=== PATIENT | female | born 1935 | race Hispanic/Latino ===

== ENCOUNTER 2017-04-06 09:03 | Inpatient (IN) | payer MEDICARE, OTHER ==
--- NOTE | 2017-04-06 10:54 | XRay Report ---
Right hand 3 views: History: Pain and swelling. Findings: Arthritic changes are noted at the interphalangeal joints of second, third, fourth and fifth fingers. Mild arthritic changes of the noted intercarpal joints. No periosteal reaction or lytic lesion or soft tissue calcification. Impression: Findings as detailed above. No acute changes.
--- NOTE | 2017-04-06 10:54 | XRay Report ---
Right wrist 3 views: History: Pain and swelling. Findings: Mild arthritic changes are noted the radiocarpal and intercarpal joints. No periosteal reaction, fracture or soft tissue calcification. Impression: Mild arthritic changes wrist.
[2017-04-06] MEDS ORDERED: NORCO 5/325 PO ONE (11:57)
--- NOTE | 2017-04-06 12:01 | Emergency Department Report ---
Upper Extremity - HPI Chief Complaint: Extremity Injury, Upper Stated Complaint: RT HAND UNABLE TO MOVE Time Seen by Provider: 04/06/17 11:25 Upper Extremity: Right Wrist Symptoms: Yes Pain with Movement, No Deformity, No Limited Range of Movement, No Numbness, No Weakness, No Swelling, No Bruising/Ecchymosis Other History: 81-year-old female past medical history CHF atrial fibrillation on a liquid as history of gout congenitally deaf hypercholesteremia and hypertension GERD left hip replacement presents with complaint of 2-3 days of right sided wrist redness on skin pain and swelling. Patient is deaf she is able to read my lips and I am communicating with her by writing down questions and answers on paper. Patient understands my questions and answers clearly and expresses understanding of them. The sign language translation service is currently not available as per charge nurse Jake as the machine is broken. However I am able to communicate effectively with the patient. Patient denies any fevers or chills denies any direct trauma states that she is having pain on the dorsal aspect of her right wrist. Denies any chest pain shortness of breath nausea or vomiting denies fevers or chills. States she lives alone. ED Review of Systems ROS: Stated complaint: RT HAND UNABLE TO MOVE Other details as noted in HPI Constitutional: denies: chills, fever Eyes: denies: eye pain, eye discharge, vision change ENT: denies: ear pain, throat pain Respiratory: denies: cough, shortness of breath, wheezing Cardiovascular: denies: chest pain, palpitations Endocrine: no symptoms reported Gastrointestinal: denies: abdominal pain, nausea, diarrhea Genitourinary: denies: urgency, dysuria, discharge Musculoskeletal: denies: back pain, joint swelling, arthralgia Skin: change in color (redness overlying the right dorsal wrist). denies: rash , lesions Neurological: denies: headache, weakness, paresthesias Psychiatric: denies: anxiety, depression Hematological/Lymphatic: denies: easy bleeding, easy bruising ED Past Medical Hx - Past Medical History Hx Hypertension: Yes Hx Congestive Heart Failure: Yes Hx Diabetes: No Hx GERD: Yes Hx Arthritis: Yes Additional medical history: Gout. HIGH CHOLESTEROL - Surgical History Additional Surgical History: Left Hip replacement 2008. HYSTERECTOMY 1974. BACK SURGERY X 2 - Social History Smoking Status: Never Smoker Substance Use Type: None - Medications Home Medications: Home Medications Medication Instructions Recorded Confirmed Last Taken Type Allopurinol [Zyloprim] 300 mg PO QDAY 07/02/16 04/06/17 04/06/17 07:00 History Apixaban [Eliquis] 5 mg PO BID 07/02/16 04/06/17 04/06/17 07:00 History Atenolol [Tenormin] 50 mg PO DAILY 07/02/16 04/06/17 04/06/17 07:00 History Esomeprazole Magnesium [NexIUM] 40 mg PO QDAY 07/02/16 04/06/17 04/06/17 07:00 History Furosemide [Lasix TAB] 20 mg PO QDAY 07/02/16 04/06/17 04/06/17 07:00 History Losartan [Cozaar] 100 mg PO QDAY 07/02/16 04/06/17 04/06/17 07:00 History 100 MG cycloSPORINE [Restasis 0.05%] 1 drop OP BID 07/02/16 04/06/17 04/06/17 07:00 History 0.05MG AtorvaSTATin 10 mg PO DAILY 04/06/17 04/06/17 04/06/17 07:00 History 10 MG HYDROcodone/APAP 5-325 [[place] 1 each PO Q6HR PRN 04/06/17 04/06/17 Unknown History 5/325] [place]-3 Fatty Acids/Fish Oil [Fish 1 tab PO DAILY 04/06/17 04/06/17 04/06/17 07: 00 History Oil] 1 TAB Solifenacin Succinate [Vesicare] 5 mg PO QDAY 04/06/17 04/06/17 04/06/17 07:00 History 1 TABLET Ubidecarenone [Coq-10] 100 mg PO DAILY 04/06/17 04/06/17 04/06/17 13:55 History 1 TABLET Zolpidem [Ambien] 5 mg PO QHS 04/06/17 04/06/17 Unknown History traMADol [Ultram] 50 mg PO Q4HR PRN 04/06/17 04/06/17 Unknown History Upper Extremity Exam - Exam General: Vital signs noted. No distress. Alert and acting appropriately. Head and Torso: No HEENT Abnormality, No Neck Tenderness, No Chest/Lungs Abnormality, No Abdominal Tenderness, No Back Tenderness Shoulder Exam: Yes Normal Range of Motion in Shoulder, No Shoulder Tenderness, No Clavicle Tenderness, No Shoulder Deformity, No AC Joint Tenderness Arm Exam: No Arm/Humerus Tenderness, No Arm Deformity Elbow: No Elbow Tenderness, No Normal Range of Motion in Elbow, No Elbow Deformity Forearm: No Forearm Tenderness, No Forearm Deformity, No Pain with Pronation, No Pain with Supination Wrist: Yes Wrist Tenderness (hyperesthesia and visible erythema right dorsal hand and wrist), Yes Normal ROM in Wrist (wrist flexion and extension intact), No Wrist Deformity, No Snuffbox Tenderness, No Pain with Axial Thumb Compression Hand: Yes Normal ROM in Digit(s), No Hand Tenderness, No Hand Deformity, No Digit Tenderness, No Digit(s) Deformity, No Tendon Dysfunction CMS Exam: Yes Normal Distal Pulses (distal radial and brachial pulses intact distal ulnar pulse intact), Yes Normal Capillary Refill (capillary refill intact ), No Broken Skin, No Normal Distal Sensation Hand L/R Back: 1 - Erythematous region here ED Course Vital Signs 04/06/17 10:07 Temperature 98.5 F Pulse Rate 86 Respiratory 17 Rate Blood Pressure 128/85 O2 Sat by Pulse 100 Oximetry ED Medical Decision Making - Lab Data Result diagrams: 04/06/17 12:12 04/06/17 12:12 - Medical Decision Making A/P: Cellulitis versus gout right dorsal hand/wrist, hypokalemia, hypocalcemia, hypomagnesemia 1-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 Patient is left handed and was able to somewhat understand my reading my lips as well as communicating by paper 2-will replete with IV calcium gluconate Corrected Calcium = (0.8 * (Normal Albumin - Pt's Albumin)) + Serum Ca= 7.4 mg/dL Corrected Calcium 3-by mouth potassium repletion with Mey Dur, patient has no overt signs of hypokalemia on EKG 4- magnesium low will replete IV 5- Dr. Giang hospitalist made aware of admission, case discussed with Dr. Hogan 6- I cross checked up-to-date for treatment of gout, as patient is elderly with CHF I am hesitant to give NSAIDs will give low dose narcotic with low-dose steroid. 7- weight-based dose vancomycin for her treatment of right dorsal hand cellulitis. Hand neurovascularly intact on exam, Dr. Hogan also examined the patient Critical care attestation.: If time is entered above; I have spent that time in minutes in the direct care of this critically ill patient, excluding procedure time. ED Disposition Clinical Impression: Cellulitis of wrist, Hypomagnesemia, Hypocalcemia, Hypokalemia, Chronic atrial fibrillation Gout flare Qualifiers: Gout site: wrist Gout etiology: unspecified cause Laterality: right Qualified Code(s): M10.9 - Gout, unspecified Disposition: OP ADMIT IP TO THIS HOSP Is pt being admited?: Yes Does the pt Need Aspirin: No Condition: Stable Referrals: PRIMARY CARE, [Primary Care Provider] - 3-5 Days
[2017-04-06] MEDS ORDERED: DELTASONE PO ONE (12:02)
[2017-04-06 12:37] LABS: Basophils % (Auto) 0.5 % (0.0-1.8); Eosinophils % (Auto) 0.3 % (0.0-4.3); Hematocrit 35.5 % (30.3-42.9); Hemoglobin 11.9 gm/dl (10.1-14.3); Mean Corpuscular HGB Conc 33 % (30-34); Mean Corpuscular Hemoglobin 31 pg (28-32); Mean Corpuscular Volume 92 fl (79-97); Platelet Count 169 K/mm3 (140-440); Red Blood Count 3.85 M/mm3 (3.65-5.03); Red Cell Distribution Width 14.6 % (13.2-15.2); White Blood Count 8.8 K/mm3 (4.5-11.0)
[2017-04-06 12:46] LABS: INR 1.85 (0.87-1.13)
[2017-04-06 12:47] LABS: Partial Thromboplastin Time 33.1 Sec. (24.2-36.6)
[2017-04-06 12:48] LABS: Anion Gap 20 mmol/L; BUN/Creatinine Ratio 14.44; Blood Urea Nitrogen 13 mg/dL (7-17); Calcium 7.2 mg/dL (8.4-10.2); Carbon Dioxide 26 mmol/L (22-30); Chloride 95.6 mmol/L (98-107); Glucose 101 mg/dL (65-100); Sodium 139 mmol/L (137-145)
[2017-04-06] MEDS ORDERED: ZOFRAN ODT PO ONE (13:13)
[2017-04-06] MEDS ORDERED: K-DUR PO ONE (13:34)
[2017-04-06 13:35] LABS: Albumin 3.7 g/dL (3.9-5); Albumin/Globulin Ratio 1.1 %; Bilirubin,Direct 0.4 mg/dL (0-0.2); Bilirubin,Indirect 0.8 mg/dL; Bilirubin,Total 1.2 mg/dL (0.1-1.2); Total Protein 7.1 g/dL (6.3-8.2)
[2017-04-06 13:54] LABS: Magnesium 0.9 mg/dL (1.7-2.3)
[2017-04-06] MEDS ORDERED: MAGNESIUM SULFATE 2GM/50ML 2 GM/50 ML BAG IV ONE ×2 (13:58→14:26)
[2017-04-06] MEDS ORDERED: CALCIUM GLUCONATE 1,000 MG in NACL 0.9% 100 ML IV ONE (13:58)
[2017-04-06] MEDS ORDERED: MORPHINE IV ONE (13:59)
[2017-04-06] MEDS ORDERED: VANCOMYCIN PHARMACY TO DOSE IV SCH (14:00)
--- NOTE | 2017-04-06 14:08 | Admit Criteria Form ---
Admission Criteria Documentation: GENERAL ADMISSION CRITERIA (Place 'X' for any and all applicable criteria): Admission is indicated for ANY ONE of the following: [ ]I. Hemodynamic instability as indicated by ANY ONE of the following(1)(2) (3)(4)(5): [ ]a) Vital sign abnormality not readily corrected by appropriate treatment within 12 to 24 hours indicated by ANY ONE of the following: [ ]i) Hypotension [ ]ii) Symptomatic Tachycardia unresponsive to treatment (eg , analgesia, fluids, sedation as indicated) [ ]iii) Orthostatic vital sign changes unresponsive to treatment (eg, fluids) [ ]b) Vital sign abnormality that is severe indicated by ANY ONE of the following: [ ]i) Inadequate perfusion indicated by ANY ONE of the following: [ ]1) Lactic acidosis (greater than 2 mmol/L) [ ]2) New abnormal capillary refill (greater than 3 seconds) [ ]3) Other metabolic acidosis (arterial pH less than 7.35) not otherwise explained [ ]4) Reduced urine output [ ]5) Altered mental status [ ]6) Myocardial Ischemia [ ]v) Mean arterial pressure[A] less than 60 mm Hg [ ]vi) Mean arterial pressure[A] less than 70 mm Hg after 30 minutes of appropriate treatment (eg, fluid resuscitation) [ ]vii) IV inotropic or vasopressor medication required to maintain adequate blood pressure or perfusion [ ]viii) Sustained heart rate greater than 120 beats per minute in adult or child 6 years or older[B]] [ ]II. Hypertension requiring inpatient treatment as indicated by ANY ONE of the following(6)(7)(8): [ ]a) SBP greater than 220 mm Hg or DBP greater than 120 mm Hg despite treatment [ ]b) SBP greater than 140 mm Hg or DBP greater than 100 mm Hg with evidence of acute end organ damage as indicated by ANY ONE of the following: [ ]i) Encephalopathy [ ]ii) Acute renal failure as indicated by new onset of ANY ONE of the following(9)(10)(11)(12)(13): [ ]1) A 3-fold rise in serum creatinine from baseline [ ]2) Serum creatinine greater than 4 mg/dL ( 354 micromoles/L) with acute rise greater than 0.5 mg/dL (44.2 micromoles/L) [ ]3) Reduction of more than 75% in estimated glomerular filtration rate from baseline [ ]4) Estimated glomerular filtration rate less than 35 mL/min/1.73m2 (0.59 mL/sec/1.73m2) in child up to 18 years of age [ ]5) Cessation of urine output indicated by ALL of the following: [ ]A. Adequate volume status [ ]B. Inadequate urine output as indicated by ANY ONE of the following: [ ]a. Urine output less than 0.3 mL/kg/hr for 24 hours [ ]b. Anuria (urine output less than 0.1 mL/kg/hr) for 12 hours [ ]iii) Aortic dissection [ ]iv) Myocardial ischemia [ ]v) Left ventricular heart failure [ ]vi) Retinal hemorrhage [ ]vii) Other significant finding [ ]c) Hypertension in child requiring inpatient treatment as indicated by ALL of the following(14)(15)(16): [ ]i) Outpatient treatment not effective, not available, or not appropriate [ ]ii) SBP or DBP greater than 95th percentile for age [ ]iii) Evidence of acute end organ damage as indicated by ANY ONE of the following: [ ]1) Altered mental status [ ]2) Acute renal failure as indicated by new onset of ANY ONE of the following(9)(10)(11)(12)(13): [ ]A. A 3-fold rise in serum creatinine from baseline [ ]B. Serum creatinine greater than 4 mg/dL (354 micromoles/L) with acute rise greater than 0.5 mg/dL (44.2 micromoles/L) [ ]C. Reduction of more than 75% in estimated glomerular filtration rate from baseline [ ]D. Estimated glomerular filtration rate less than 35 mL/min/1.73m2 (0.59 mL/sec/1.73m2)in child up to 18 years of age [ ]E. Cessation of urine output indicated by ALL of the following: [ ]a. Adequate volume status [ ]b. Inadequate urine output as indicated by ANY ONE of the following: [ ]1) Urine output less than 0.3 mL/kg/hr for 24 hours [ ]2) Anuria (urine output less than 0.1 mL/kg/hr) for 12 hours [ ]3) Severe headache [ ]4) Visual disturbance [ ]5) Retinal hemorrhage [ ]6) Other significant finding [ ]III. Acute cardiac or peripheral ischemia as indicated by ANY ONE of the following: [ ]a) Acute coronary syndrome(17)(18) [ ]b) Acute peripheral ischemia (eg, pulseless, cool, mottled, or cyanotic extremity)(19) [ ]IV. Cardiac arrhythmias or findings of immediate concern indicated by ANY ONE of the following(20)(21): [ ]a) Heart rhythms that are inherently dangerous or unstable indicated by ANY ONE of the following(22)(23)(24): [ ]i) Resuscitated ventricular fibrillation or cardiac arrest [ ]ii) Ventricular escape rhythm [ ]iii) Sustained ventricular tachycardia (30 seconds or more of ventricular rhythm at greater than 100 beats per minute) [ ]iv) Nonsustained ventricular tachycardia and ANY ONE of the following: [ ]1) Suspected cardiac ischemia as cause or consequence of ventricular tachycardia [ ]2) In setting of acute myocarditis [ ]b) Unstable cardiac conduction defects indicated by ANY ONE of the following(24)(25)(26): [ ]i) Type II second-degree atrioventricular block [ ]ii) Third-degree atrioventricular block [ ]iii) New-onset left bundle branch block with suspected myocardial ischemia [ ]c) Any heart rhythm and ANY ONE of the following(22)(23)(27)(28)( 29): [ ] i) Continuous long-term ECG monitoring needed (eg, initiation of drug requiring monitoring for more than 24 hours) [ ] ii) Patient has automatic implanted cardioverter defibrillator that is repeatedly firing, malfunctioning, or in need of immediate adjustment of settings beyond the scope of ambulatory or observation care. [ ]d) Heart rhythms of concern due to ANY ONE of the following: [ ]i) Hypotension [ ]ii) Respiratory distress [ ]iii) Association with other significant symptoms (eg, bradycardia with syncope or ongoing dizziness, supraventricular tachycardia with chest pain) (27)(28) (30) [ ] V. Severe heart failure as indicated by ANY ONE of the following ( 31)(32): [ ]a) Respiratory distress [ ]b) Hypotension [ ]c) Anasarca (refractory to outpatient therapy) [ ]d) Cardiac arrhythmias of immediate concern [ ]e) Myocardial ischemia [ ]. Respiratory abnormalities, including ANY ONE of the following(33)(34) (35)(36): [ ]a) Respiratory rate greater than 30 breaths per minute unresponsive to treatment [A] [ ]b) New saturation of arterial oxygen less than 90% [ ]c) New partial pressure of carbon dioxide greater than 44 mm Hg ( 5.9 kPa) [ ]d) Supplemental oxygen or respiratory treatments needed that are new or not performable at other levels of care [ ]e) New-onset cyanosis [ ]f) Inability to protect airway [ ]g) Chronic lung disease with severe deterioration (not responsive to emergency and observation care treatment as appropriate) as indicated by ANY ONE of the following(34)(36 ): [ ]i) SaO2 5% below baseline in patient with chronic hypoxemia [ ]ii) New requirement for supplemental oxygen to keep SaO2 at baseline or acceptable level [ ]iii) Required supplemental oxygen performable only in acute inpatient setting [ ]iv) Severe airflow or ventilation abnormalities [ ]v) Previously mobile patient unable to walk between rooms [ ]vi Inability to eat or sleep due to dyspnea [ ]vii) Rapid rate of exacerbation onset [ ]viii) Altered mental status ]VII. Severe airflow or ventilation abnormalities (not responsive to emergency and observation care treatment as appropriate) as indicated by ANY ONE of the following(33)(34)(35)(37): [ ]a) PCO2 greater than 42 mm Hg (5.6 kPa) and pH less than 7.35 (new ) [ ]b) Documented PCO2 increased more than 5 mm Hg (0.7 kPa) from disease baseline [ ]c) Airflow measurements [B] less than 60% of previous best or predicted (eg, peak expiratory flow rate less than 300 L/minute) despite intensive emergent treatment [C] [ ]d) Required respiratory treatments that are performable only in acute inpatient setting [ ]VIII. Impending or actual respiratory arrest ( Also use Respiratory Failure GRG for severe respiratory disease and long-term mechanical ventilation patients) [ ]IX. Neurologic abnormalities, including ANY ONE of the following: [ ]a) New findings that suggest ANY ONE of the following: [ ]i) MEDICAL CODING TECHNICIAN infection(38) [ ]ii) Cerebral bleeding, ischemia, or vasospasm(39)(40) [ ]iii) Increased intracranial pressure, hydrocephalus, or cerebral edema(41)(42)(43) [ ]iv) Spinal cord injury(44) [ ]b) Uncontrolled seizures(45) [ ]c) New-onset coma (eg, [place] coma scale score less than 9) or unexplained abnormal mental status (eg, [place] coma scale score less than 14) [D](41)(46)(47) [ ]X. New-onset severe neurologic findings requiring inpatient care; examples include(42)(48)(49): [ ]a) Papilledema [ ]b) Cerebral edema [ ]c) Mass effect on CT scan [ ]XI. Suspected acute intra-abdominal process with peritoneal signs, abdominal mass, or similar findings (50)(51)(52) [ ]XII. Severe physiologic disorder remaining after emergency or observation level care (as appropriate) as indicated by ANY ONE of the following (53): [ ]a) Significant dehydration [ ]b) Diabetic ketoacidosis [ ]c) Hyperglycemic hyperosmolar state (eg, osmolality greater than 320 mOsm/kg (mmol/kg) [ ]d) Hypoglycemia [ ]e) Other (new) acid-base disorder with pH less than 7.35 or greater than 7.5(54) [ ]f) Thyroid storm (55) [ ]g) Myxedema coma (55) [ ]XIII. Abdominal abnormalities with ANY ONE of the following(56)(57): [ ]a) Absent bowel sounds with complete ileus [ ]b) Signs of intestinal obstruction or peritonitis [E] [ ]c) Nausea and vomiting that cannot be controlled with outpatient or observation care [ ]XIV. Acute renal failure as indicated by new onset of ANY ONE of the following(9)(10)(11)(12)(13): [ ]a) A 3-fold rise in serum creatinine from baseline [ ]b) Serum creatinine greater than 4 mg/dL (354 micromoles/L) with acute rise greater than 0.5 mg/dL (44.2 micromoles/L) [ ]c) Reduction of more than 75% in estimated glomerular filtration rate from baseline [ ]d) Estimated glomerular filtration rate less than 35 mL/min/ 1.73m2 (0.59 mL/sec/1.73m2) in child up to 18 years of age [ ]e) Cessation of urine output indicated by ALL of the following: [ ]i) Adequate volume status [ ]ii) Inadequate urine output as indicated by ANY ONE of the following: [ ]1) Urine output less than 0.3 mL/kg/hr for 24 hours [ ]2) Anuria (urine output less than 0.1 mL/kg/hr) for 12 hours [ ]XV. Significant uremic complications as indicated by ANY ONE of the following(58)(59)(60): [ ]a) Outpatient therapy is ineffective or not feasible for ANY ONE of the following: [ ]i) Severe heart failure [ ]ii) Severehypertension [ ]iii) Pleural effusion [ ]iv) Pericarditis or pericardial effusion [ ]b) Cardiac arrhythmias of immediate concern [ ]c) Intractable nausea or vomiting [ ]d) Recurrent seizures [ ]e) Encephalopathy [ ]f) Bleeding abnormalities (eg, platelet dysfunction) with active (eg, gastrointestinal) bleeding [ ]g) Dialysis indicated before long-term access or ambulatory arrangements can be made [ ]h) Significant metabolic or electrolyte abnormalities (eg, severe acidosis or hyperkalemia) [ ]XVI. High fever or other high-risk infection situation as indicated by ANY ONE of the following(61)(62)(63)(64): [ ]a) Outpatient and observation care antimicrobial treatment unavailable, not effective, or not appropriate [ ]b) Documented bacteremia [ ]c) Temperature greater than 40.5 degrees C (104.9 degrees F) ( oral) [ ]d) Temperature greater than 39.5 degrees C (103.1 degrees F) ( oral) or less than 36 degrees C (96.8 degrees F) (rectal) that does not respond to e treatment and observation care [ ] XVII. Temperature less than 95 degrees F (35 degrees C)(rectal)(65) [ ] XVIII. Severe nutritional abnormalities as indicated by ALL of the following (66)(67): [ ]a) Inability to tolerate or establish sufficient oral or other enteral nutrition in outpatient setting [ ]b) Parenteral nutrition regimen need that must be implemented on inpatient basis [ X] XIX. Severe electrolyte abnormalities indicated by ALL of the following(68 )(69)(70): [X ]a) Electrolytes and associated findings are not as expected for patient baseline or acceptable treatment effects. [X ]b) Severe abnormalities indicated by ANY ONE of the following: [ ]i) Sodium less than 130 mEq/L (mmol/L) (new) [ ]ii)Sodium less than 135 mEq/L (mmol/L) with ANY ONE of the following: [ ]1) Uncorrectable (to near normal or chronic baseline) after trial of outpatient and emergency treatment [ ]2) Altered mental status [ ]3) Seizures [ ]4) Severe medical etiology requiring inpatient management (eg, heart failure, hypovolemia) [ ]iii) Sodium greater than 155 mEq/L (mmol/L) [ ]iv) Sodium greater than 150 mEq/L (mmol/L) with ANY ONE of the following: [ ]1) Uncorrectable (to near normal or chronic baseline) with outpatient and emergency treatment [ ]2) Altered mental status [ ]3) Seizures [ ]4) Severe medical etiology (eg, hypovolemia, diabetes insipidus) [ ]v) Potassium less than 2.5 mEq/L (mmol/L) despite outpatient and emergency treatment [ ]vi) Potassium less than 3 mEq/L (mmol/L) with ANY ONE of the following: [ ]1) Weakness [ ]2) Cardiac abnormality (eg, arrhythmia, conduction disturbance) [ ]3) Cardiac ischemia [ ]4) Ileus [ ]5) Ongoing medical cause requiring inpatient management (eg, acute renal wasting or SIADH) [ ]6) Other severe symptoms [ ]vii) Potassium greater than 6.5 mEq/L (mmol/L) [ ]viii) Potassium greater than 5 mEq/L (mmol/L) with ANY ONE of the following: [ ]1) Uncorrectable (to near normal or chronic baseline) with outpatient and emergency treatment [ ]2) Severe ECG findings [F] [ ]3) Acute worsening of renal failure (creatinine greater than 2.5 mg/dL (221 micromoles/L) or significant elevation for age and size) [ ]4) Severe weakness [ ]5) Severe medical etiology (eg, hemolysis, infection, drug overdose) [ ]ix) Calcium less than 7 mg/dL (1.75 mmol/L) despite outpatient and emergency treatment (72) [ ]x) Calcium less than 8 mg/dL (2 mmol/L) with significant symptoms or findings; examples include(72): [ ]1) Altered mental status [ ]2) Muscle spasms [ ]3) Seizures [ ]4) Breathing difficulty [ ]5) Cardiac abnormality (eg, arrhythmia or conduction disturbance) [ ]xi) Calcium greater than 14 mg/dL (3.5 mmol/L)(72) [ ]xii) Calcium greater than 12 mg/dL (3 mmol/L) with ANY ONE of the following(72): [ ]1) Uncorrectable (to near normal or chronic baseline) with outpatient and emergency treatment [ ]2) Significant dehydration or hypovolemia as indicated by ALL of the following(70)(73)(74): [ ]A. Not resolved with initial treatments [ ]B. Clinically significant dehydration as indicated by ANY ONE of the following: [ ]a. Vomiting refractory to outpatient treatment (ie, precluding oral rehydration) [ ]b. Inability to drink [ ]c. Hypernatremia or other electrolyte abnormality unable to be corrected with outpatient and emergency treatment [ ]d. Failure to remain hydrated with outpatient therapy [ ]e. Reduced urine output [ ]f. Hypotension [ ]g. Serious cause for dehydration requiring acute hospitalization (eg, bowel obstruction, increased intracranial pressure, infectious cause) [ ]h. Child with ANY ONE of the following(75): [ ]1) Severe abdominal tenderness [ ]2) Adequate care not available at home [ ]3) Severe dehydration ( greater than 9% loss of body weight) [ ]4) Significant symptoms or findings; examples include: [ ]A. Altered mental status [ ]B. Cardiac abnormality (eg, arrhythmia, conduction disturbance) [ ]C. Malignant etiology requiring inpatient treatment [ ]xiii) Phosphorus less than 1 mg/dL (0.32 mmol/L) [ ]xiv) Phosphorus less than 1.5 mg/dL (0.48 mmol/L) with ANY ONE of the following: [ ]1) Patient unresponsive to outpatient and emergency treatment [ ]2) Significant symptoms or findings; examples include: [ ]A. Weakness [ ]B. Altered mental status [ ]C. Breathing difficulty [ ]D. Seizures [ ]E. Rhabdomyolysis [ ]xv) Phosphorus greater than 10 mg/dL (3.2 mmol/L) [ ]xvi) Phosphorus greater than 4.5 mg/dL (1.45 mmol/L) (new) with ANY ONE of the following: [ ]1) Severe medical etiology (eg, crush injury, acute renal failure) [ ]2) Associated hypocalcemia with significant findings; examples include: [ ]A. Neurologic symptoms [ ]B. Altered mental status [ ]C. Muscle spasms [ ]D. Seizures [ ]E. Breathing difficulty [ ]F. Cardiac abnormality (eg, arrhythmia, conduction disturbance) [X ]xvii) Magnesium less than 1 mg/dL (0.41 mmol/L) [ ]xviii) Magnesium less than 1.5 mg/dL (0.62 mmol/L) with ANY ONE of the following: [ ]1) Patient unresponsive to outpatient and emergency treatment [ ]2) Associated hypocalcemia with significant findings; examples include: [ ]A. Altered mental status [ ]B. Muscle spasms [ ]C. Seizures [ ]D. Breathing difficulty [ ]E. Cardiac abnormality (eg, arrhythmia , conduction disturbance) [ ]3) Associated hypokalemia (potassium less than 3 mEq/L (mmol/L)) with risk of arrhythmia [ ]xix) Magnesium greater than 4 mEq/L (2 mmol/L) [ ]xx) Magnesium greater than 2.5 mEq/L (1.25 mmol/L) with significant symptoms or findings; examples include: [ ]1) Weakness [ ]2) Altered mental status [ ]3) Cardiac abnormality (eg, arrhythmia, conduction disturbance) [ ]4) Breathing difficulty [ ]5) Severe medical etiology (eg, renal failure, hypovolemia) [ ]xxi) Uric acid greater than 20 mg/dL (1190 micromoles/L)(76) [ ]xxii) Uric acid greater than 8 mg/dL (476 micromoles/L) with significant symptoms or findings of tumor lysis syndrome; examples include(76): [ ]1) Creatinine greater than 1.5 times upper limit of normal [ ]2) Cardiac abnormality (eg, arrhythmia, conduction disturbance) [ ]3) Seizure [ ]XX. Acute blood loss causing significant abnormality as indicated by ANY ONE of the following(77)(78): [ ]a) Hemoglobin less than 10 g/dL (100 g/L) (not baseline) [ ]b) Hematocrit less than 30% (0.30) (not baseline) [ ]c) Repeat hematocrit decreased more than 2% (0.02) [ ]d) Uncontrolled bleeding [ ]XXI. Severe anemia indicated by ANY ONE of the following(78)(79): [ ]a) Altered mental status [ ]b) Chest pain [ ]c) Exertional dyspnea [ ]d) Syncope [ ]e) Other findings suggesting inadequate perfusion [ ]f) Treatment with transfusion or volume replacement is ineffective at resolving ANY ONE of the following [G]: [ ]i) Tachycardia for age [ ]ii) Orthostatic vital sign changes as indicated by ANY ONE of the following(80): [ ]1) Fall in SBP of 20 mm Hg or more 1 to 3 minutes after patient sits or stands from recumbent position [ ]2) Fall in DBP of 10 mm Hg or more 1 to 3 minutes after patient sits or stands from recumbent position [ ]XXII. High-risk low platelet count as indicated by ANY ONE of the following( 81)(82): [ ]a) Severe or life-threatening bleeding (eg, intracranial, major gastrointestinal, or extensive mucosal bleeding), with any reduced platelet count [ ]b) Platelet count less than 20,000/mm3 (20 x109/L) with any active bleeding [ ]c) Platelet count less than 10,000/mm3 (10 x109/L) with minor purpura or petechiae [ ]d) Platelet count less than 5000/mm3 (5 x109/L) [ ]e) Low platelet count with hemolytic anemia [ ]XXIII. Disseminated intravascular coagulation(77)(83) [ ]XXIV. Severe adverse drug or systemic toxin reaction requiring inpatient treatment; examples include(84)(85): [ ]a) Serotonin syndrome(86) [ ]b) Neuroleptic malignant syndrome(86) [ ]c) Cholinergic syndrome with severe symptoms (eg, bronchorrhea, weakness, mental status changes, seizures) [ ]d) Sympathetic syndrome with severe symptoms (eg, seizures, mental status changes, cardiac dysrhythmias) [ ]e) Anticholinergic syndrome [ ]XXV. Severe pain requiring acute inpatient management as indicated by ALL of the following (87)(88)(89): [ ]a) Continuous or frequent (eg, every 2 to 4 hours) parenteral analgesics required [H] [ ]b) Rapid improvement expected from treatment or acute intervention (eg, surgery, anesthesia procedure) [ ]XXVI.Severe behavioral health issues judged unmanageable at a lower level of care (eg, residential) in a patient who is ANY ONE of the following(91) [ ]a) Acutely suicidal [ ]b) A danger to self (eg, self-mutilating or suicidal behavior) [ ]c) A danger to others (eg, assaultive or homicidal behavior) [ ]d) Incapacitated because of grave disability (eg, inability to provide for self at lower level of care) (92) [ ]XXVII. Inpatient monitoring needed; examples include(1)(3)(87)(93)(94)(95)(96 ): [ ]a) Vital signs, neurologic signs, or vascular checks more frequently than every 4 hours [ ]b) Cardiac or respiratory monitoring beyond the scope (eg, over 24 hours) of observation care [ ]c) Pulmonary artery catheter monitoring [ ]d) Suspected compartment syndrome(97) (98) [ ]e) Cerebral bleeding, hydrocephalus, or vasospasm monitoring [ ]f) Increased intracranial pressure or cerebral edema monitoring [ ]g) monitoring [ ]XXVIII. Treatment requiring inpatient care; examples include: [ ]a) IV fluid to replace significant ongoing losses (greater than 3 L/m2 per day)(53) [ ]b) High concentration oxygen (greater than 40%)(33)(99)(100) [ ]c) Frequent respiratory therapy (more frequently than every 4 hours) to maintain airflow rates greater than 60% of baseline(33)(99)(100) [ ]d) Epidural analgesia(87) [ ]e) IV anticoagulation, vasoactive, or antiarrhythmic medication(19 )(23) [ ]f) Acute thrombolytics (generally require 24 hours of observation )(101)(102) [ ]XXIX. Emergency procedures needed; examples include: [ ]a) Emergency inpatient surgery [ ]b) Temporary pacemaker placement(103) [ ]c) Chest tube placement with active evacuation (eg, suction, drainage)(104) [ ]d) Emergent cardioversion(105) [ ]e) Emergent cardiac or vascular procedures (eg, cardiac catheterization, angioplasty) (17)(18) [ ]f) Emergent dialysis access placement and institution(10)(106) [ ]g) Emergent pericardiocentesis(107) [ ]h) Emergent plasmapheresis or leukapheresis(83) [ ]i) Emergent tracheostomy The original [employer] content created by [employer] has been revised. The portions of the content which have been revised are identified through the use of italic text or in bold, and [employer] has neither reviewed nor approved the modified material. All other unmodified content is copyright [employer]. Please see references footnoted in the original [employer] edition 2016 Admission Criteria Met: Yes
[2017-04-06] MEDS: VANCOMYCIN 1,500 MG in NACL 0.9% 500 ML 500 ML IV SCH (15:51)
[2017-04-06] MEDS ORDERED: ULTRAM PO PRN (19:12)
[2017-04-06] MEDS ORDERED: NORCO 5/325 PO PRN (19:12)
--- NOTE | 2017-04-06 19:12 | History and Physical Report ---
History of Present Illness Date of examination: 04/06/17 Date of admission: 04/06/17 13:45 Chief complaint: Rt Hand swelling and redness History of present illness: NOBLE: 81-year-old female past medical history CHF atrial fibrillation , gout congenitally deaf,hypercholesteremia and hypertension GERD left hip replacement presents with complaint of 2-3 days of right sided wrist redness ,pain and swelling. Patient is deaf . Patient understands my questions and answers clearly and expresses understanding of them. Patient denies any fevers or chills denies any direct trauma states that she is having pain on the dorsal aspect of her right wrist. Denies any chest pain shortness of breath nausea or vomiting denies fevers or chills. States she lives alone. - Past Medical History Hx Hypertension: Yes Hx Congestive Heart Failure: Yes Hx Diabetes: No Hx GERD: Yes Hx Arthritis: Yes Additional medical history: Gout. HIGH CHOLESTEROL - Surgical History Additional Surgical History: Left Hip replacement 2008. HYSTERECTOMY 1974. BACK SURGERY X 2 - Social History Smoking Status: Never Smoker Substance Use Type: None - Medications Home Medications: Home Medications Medication Instructions Recorded Confirmed Last Taken Type Allopurinol [Zyloprim] 300 mg PO QDAY 07/02/16 04/06/17 04/06/17 07:00 History Apixaban [Eliquis] 5 mg PO BID 07/02/16 04/06/17 04/06/17 07:00 History Atenolol [Tenormin] 50 mg PO DAILY 07/02/16 04/06/17 04/06/17 07:00 History Esomeprazole Magnesium [NexIUM] 40 mg PO QDAY 07/02/16 04/06/17 04/06/17 07:00 History Furosemide [Lasix TAB] 20 mg PO QDAY 07/02/16 04/06/17 04/06/17 07:00 History Losartan [Cozaar] 100 mg PO QDAY 07/02/16 04/06/17 04/06/17 07:00 History 100 MG cycloSPORINE [Restasis 0.05%] 1 drop OP BID 07/02/16 04/06/17 04/06/17 07:00 History 0.05MG AtorvaSTATin 10 mg PO DAILY 04/06/17 04/06/17 04/06/17 07:00 History 10 MG HYDROcodone/APAP 5-325 [[place] 1 each PO Q6HR PRN 04/06/17 04/06/17 Unknown History 5/325] [place]-3 Fatty Acids/Fish Oil [Fish 1 tab PO DAILY 04/06/17 04/06/17 04/06/17 07: 00 History Oil] 1 TAB Solifenacin Succinate [Vesicare] 5 mg PO QDAY 04/06/17 04/06/17 04/06/17 07:00 History 1 TABLET Ubidecarenone [Coq-10] 100 mg PO DAILY 04/06/17 04/06/17 04/06/17 13:55 History 1 TABLET Zolpidem [Ambien] 5 mg PO QHS 04/06/17 04/06/17 Unknown History traMADol [Ultram] 50 mg PO Q4HR PRN 04/06/17 04/06/17 Unknown History Review of Systems ROS: Stated complaint: RT HAND UNABLE TO MOVE Other details as noted in HPI Constitutional: denies: chills, fever Eyes: denies: eye pain, eye discharge, vision change ENT: denies: ear pain, throat pain Respiratory: denies: cough, shortness of breath, wheezing Cardiovascular: denies: chest pain, palpitations Endocrine: no symptoms reported Gastrointestinal: denies: abdominal pain, nausea, diarrhea Genitourinary: denies: urgency, dysuria, discharge Musculoskeletal: denies: back pain, joint swelling, arthralgia Skin: change in color (redness overlying the right dorsal wrist). denies: rash , lesions Neurological: denies: headache, weakness, paresthesias Psychiatric: denies: anxiety, depression Hematological/Lymphatic: denies: easy bleeding, easy bruising Medications and Allergies Allergies Allergy/AdvReac Type Severity Reaction Status Date / Time No Known Allergies Allergy Verified 04/06/17 10:01 Home Medications Medication Instructions Recorded Confirmed Last Taken Type Allopurinol [Zyloprim] 300 mg PO QDAY 07/02/16 04/06/17 04/06/17 07:00 History Apixaban [Eliquis] 5 mg PO BID 07/02/16 04/06/17 04/06/17 07:00 History Atenolol [Tenormin] 50 mg PO DAILY 07/02/16 04/06/17 04/06/17 07:00 History Esomeprazole Magnesium [NexIUM] 40 mg PO QDAY 07/02/16 04/06/17 04/06/17 07:00 History Furosemide [Lasix TAB] 20 mg PO QDAY 07/02/16 04/06/17 04/06/17 07:00 History Losartan [Cozaar] 100 mg PO QDAY 07/02/16 04/06/17 04/06/17 07:00 History 100 MG cycloSPORINE [Restasis 0.05%] 1 drop OP BID 07/02/16 04/06/17 04/06/17 07:00 History 0.05MG AtorvaSTATin 10 mg PO DAILY 04/06/17 04/06/17 04/06/17 07:00 History 10 MG HYDROcodone/APAP 5-325 [[place] 1 each PO Q6HR PRN 04/06/17 04/06/17 Unknown History 5/325] [place]-3 Fatty Acids/Fish Oil [Fish 1 tab PO DAILY 04/06/17 04/06/17 04/06/17 07: 00 History Oil] 1 TAB Solifenacin Succinate [Vesicare] 5 mg PO QDAY 04/06/17 04/06/17 04/06/17 07:00 History 1 TABLET Ubidecarenone [Coq-10] 100 mg PO DAILY 04/06/17 04/06/17 04/06/17 13:55 History 1 TABLET Zolpidem [Ambien] 5 mg PO QHS 04/06/17 04/06/17 Unknown History traMADol [Ultram] 50 mg PO Q4HR PRN 04/06/17 04/06/17 Unknown History Active Meds: Active Medications Vancomycin HCl 1,500 mg/ (Sodium Chloride) 530 mls @ 333.333 mls/hr IV Q24H [facility] Last Admin: 04/06/17 15:51 Dose: 333.333 mls/hr Vancomycin HCl (Vancomycin Pharmacy To Dose) 1 each IV PKCONSULT CAITLYN PRN Reason: Protocol Exam - Constitutional Vitals: Temp Pulse Resp BP Pulse Ox 98.9 F 82 20 131/72 97 04/06/17 15:27 04/06/17 15:27 04/06/17 15:27 04/06/17 15:27 04/06/17 15:27 General appearance: Present: no acute distress, well-nourished - EENT Eyes: Present: PERRL ENT: hearing intact, clear oral mucosa - Neck Neck: Present: supple, normal ROM - Respiratory Respiratory effort: normal Respiratory: bilateral: CTA - Cardiovascular Heart rate: 80 Rhythm: regular Heart Sounds: Present: S1 & S2. Absent: rub, click - Extremities Extremities: pulses intact, pulses symmetrical, No edema Extremity abnormal: erythema (Rt Hand Dorsum) Peripheral Pulses: within normal limits - Abdominal General gastrointestinal: Present: soft, non-tender, non-distended, normal bowel sounds Female genitourinary: Present: normal - Integumentary Integumentary: Present: clear, warm, dry - Musculoskeletal Musculoskeletal: gait normal, strength equal bilaterally - Psychiatric Psychiatric: appropriate mood/affect, intact judgment & insight - Neurologic Neurologic: CNII-XII intact, moves all extremities Results - Labs CBC & Chem 7: 04/07/17 05:14 04/07/17 05:14 Labs: Laboratory Last Values WBC 8.8 K/mm3 (4.5-11.0) 04/06/17 12:12 RBC 3.85 M/mm3 (3.65-5.03) 04/06/17 12:12 Hgb 11.9 gm/dl (10.1-14.3) 04/06/17 12:12 Hct 35.5 % (30.3-42.9) 04/06/17 12:12 MCV 92 fl (79-97) 04/06/17 12:12 MCH 31 pg (28-32) 04/06/17 12:12 MCHC 33 % (30-34) 04/06/17 12:12 RDW 14.6 % (13.2-15.2) 04/06/17 12:12 Plt Count 169 K/mm3 (140-440) 04/06/17 12:12 Lymph % (Auto) 21.0 % (13.4-35.0) 04/06/17 12:12 [place] % (Auto) 7.7 % (0.0-7.3) H 04/06/17 12:12 Eos % (Auto) 0.3 % (0.0-4.3) 04/06/17 12:12 Baso % (Auto) 0.5 % (0.0-1.8) 04/06/17 12:12 Lymph # 1.9 K/mm3 (1.2-5.4) 04/06/17 12:12 [place] # 0.7 K/mm3 (0.0-0.8) 04/06/17 12:12 Eos # 0.0 K/mm3 (0.0-0.4) 04/06/17 12:12 Baso # 0.0 K/mm3 (0.0-0.1) 04/06/17 12:12 Seg Neutrophils % 70.5 % (40.0-70.0) H 04/06/17 12:12 Seg Neutrophils # 6.2 K/mm3 (1.8-7.7) 04/06/17 12:12 PT 21.3 Sec. (12.2-14.9) H 04/06/17 12:12 INR 1.85 (0.87-1.13) H 04/06/17 12:12 APTT 33.1 Sec. (24.2-36.6) 04/06/17 12:12 Sodium 139 mmol/L (137-145) 04/06/17 12:12 Potassium 3.0 mmol/L (3.6-5.0) L 04/06/17 12:12 Chloride 95.6 mmol/L (98-107) L 04/06/17 12:12 Carbon Dioxide 26 mmol/L (22-30) 04/06/17 12:12 Anion Gap 20 mmol/L 04/06/17 12:12 BUN 13 mg/dL (7-17) 04/06/17 12:12 Creatinine 0.9 mg/dL (0.7-1.2) 04/06/17 12:12 Estimated GFR > 60 ml/min 04/06/17 12:12 BUN/Creatinine Ratio 14.44 % 04/06/17 12:12 Glucose 101 mg/dL (65-100) H 04/06/17 12:12 Calcium 7.2 mg/dL (8.4-10.2) L 04/06/17 12:12 Magnesium 0.90 mg/dL (1.7-2.3) L* 04/06/17 12:12 Total Bilirubin 1.20 mg/dL (0.1-1.2) 04/06/17 12:12 Direct Bilirubin 0.4 mg/dL (0-0.2) H 04/06/17 12:12 Indirect Bilirubin 0.8 mg/dL 04/06/17 12:12 AST 19 units/L (5-40) 04/06/17 12:12 ALT 11 units/L (7-56) 04/06/17 12:12 Alkaline Phosphatase 68 units/L (35-129) 04/06/17 12:12 Troponin T < 0.010 ng/mL (0.00-0.029) 04/06/17 12:12 Total Protein 7.1 g/dL (6.3-8.2) 04/06/17 12:12 Albumin 3.7 g/dL (3.9-5) L 04/06/17 12:12 Albumin/Globulin Ratio 1.1 % 04/06/17 12:12 Short CBC 04/06/17 04/07/17 Range/Units 12:12 05:14 WBC 8.8 6.5 (4.5-11.0) K/mm3 Hgb 11.9 11.6 (10.1-14.3) gm/dl Hct 35.5 34.3 (30.3-42.9) % Plt Count 169 158 (140-440) K/mm3 BMP 04/06/17 04/07/17 12:12 05:14 Sodium 139 143 Potassium 3.0 L 3.6 Chloride 95.6 L 98.5 Carbon Dioxide 26 34 H D BUN 13 13 Creatinine 0.9 0.8 Glucose 101 H 113 H Calcium 7.2 L 7.6 L Cardiac Enzymes 04/06/17 Range/Units 12:12 Troponin T < 0.010 (0.00-0.029) ng/mL Liver Function 04/06/17 04/07/17 Range/Units 12:12 05:14 Total Bilirubin 1.20 0.70 (0.1-1.2) mg/dL Direct Bilirubin 0.4 H (0-0.2) mg/dL AST 19 23 (5-40) units/L ALT 11 14 (7-56) units/L Alkaline Phosphatase 68 65 (35-129) units/L Albumin 3.7 L 3.6 L (3.9-5) g/dL Assessment and Plan Advance Directives: Yes (Full code) VTE prophylaxis?: Chemical Plan of care discussed with patient/family: Yes - Patient Problems (1) Cellulitis of wrist Current Visit: Yes Status: Acute Plan to address problem: Rt Hand cellulitis-Started on Unasyn and Vancomycin.Maybe switched to po ABX in 48 hours depending on the response (2) Hypomagnesemia Current Visit: Yes Status: Acute Plan to address problem: Supplemented (3) Hypertension Current Visit: No Status: Chronic Qualifiers: Hypertension type: essential hypertension Qualified Code(s): I10 - Essential (primary) hypertension Plan to address problem: Cont antihypertensives (4) Chronic atrial fibrillation Current Visit: Yes Status: Chronic Plan to address problem: cont Eliquis (5) Urinary incontinence Current Visit: Yes Status: Chronic Qualifiers: Urinary Incontinence type: stress incontinence Qualified Code(s): N39.3 - Stress incontinence (female) (male) Plan to address problem: On Vesicare (6) HLD (hyperlipidemia) Current Visit: Yes Status: Chronic Qualifiers: Hyperlipidemia type: mixed hyperlipidemia Qualified Code(s): E78.2 - Mixed hyperlipidemia Plan to address problem: Cont Statins (7) DVT prophylaxis Current Visit: Yes Status: Acute Plan to address problem: Patient on Eliquis (8) Discharge planning issues Current Visit: Yes Status: Acute Plan to address problem: Patient lives alone and is Deaf.Daughter from [place] wanted help with Discharge transportation.Neighbor was at bedside.
[2017-04-06] MEDS ORDERED: NON-FORMULARY (Losartan [Cozaar] 100 MG) PO SCH (19:15)
[2017-04-06] MEDS ORDERED: TYLENOL PO PRN (19:17)
[2017-04-06] MEDS ORDERED: MILK OF MAGNESIA PO PRN (19:17)
[2017-04-06] MEDS ORDERED: ZOFRAN IV PRN (19:17)
[2017-04-06] MEDS ORDERED: DULCOLAX PR PRN (19:17)
[2017-04-06] MEDS ORDERED: PERCOCET 5/325 PO PRN (19:18)
[2017-04-06] MEDS ORDERED: DILAUDID IV PRN (19:18)
[2017-04-06] MEDS ORDERED: NACL 0.45% 1000 ML 1,000 ML IV SCH (20:00)
[2017-04-06] MEDS: ZYLOPRIM PO SCH (20:33)
[2017-04-06] MEDS: UNASYN/NS 3 GM/100 ML 3 GM/100 ML BAG IV SCH (21:40)
[2017-04-06] MEDS ORDERED: NON-FORMULARY (Cyclosporine [Restasis 0.05%] 1 DROP) OP SCH (22:00)
[2017-04-06] MEDS: ELIQUIS PO SCH (23:17)
[2017-04-06] MEDS: AMBIEN PO SCH (23:17)
[2017-04-07 05:40] LABS: Basophils % (Auto) 0.4 % (0.0-1.8); Eosinophils % (Auto) 0.2 % (0.0-4.3); Hematocrit 34.3 % (30.3-42.9); Hemoglobin 11.6 gm/dl (10.1-14.3); Mean Corpuscular HGB Conc 34 % (30-34); Mean Corpuscular Hemoglobin 31 pg (28-32); Mean Corpuscular Volume 90 fl (79-97); Platelet Count 158 K/mm3 (140-440); Red Blood Count 3.79 M/mm3 (3.65-5.03); Red Cell Distribution Width 14.6 % (13.2-15.2); White Blood Count 6.5 K/mm3 (4.5-11.0)
[2017-04-07] MEDS: UNASYN/NS 3 GM/100 ML 3 GM/100 ML BAG IV SCH ×4 (05:44→19:46)
[2017-04-07] MEDS: LASIX PO SCH (05:44)
[2017-04-07 06:07] LABS: Alanine Aminotransferase 14 units/L (7-56); Albumin 3.6 g/dL (3.9-5); Albumin/Globulin Ratio 1.2 %; Alkaline Phosphatase 65 units/L (35-129); BUN/Creatinine Ratio 16.25; Blood Urea Nitrogen 13 mg/dL (7-17); Calcium 7.6 mg/dL (8.4-10.2); Carbon Dioxide 34 mmol/L (22-30); Chloride 98.5 mmol/L (98-107); Glucose 113 mg/dL (65-100); Potassium 3.6 mmol/L (3.6-5.0); Sodium 143 mmol/L (137-145); Total Protein 6.7 g/dL (6.3-8.2)
[2017-04-07 06:09] LABS: Anion Gap 14 mmol/L
--- NOTE | 2017-04-07 08:14 | Progress Note ---
Assessment and Plan Assessment and plan: --Right wrist/hand cellulitis Significant improvement, continue IV antibiotics, follow cultures Samson wrap around wrist support --Hypomagnesemia; corrected Closely monitor magnesium levels --Hypokalemia; corrected, closely monitor potassium levels --Hypertension; moderate control, continue current antihypertensives and when necessary medications --Chronic atrial fibrillation; rate controlled, stable --Chronic anticoagulation with Eliquis, stable --Dyslipidemia; stable on lipid lowering medications --Urinary incontinence; continue Vesicare --DVT prophylaxis; patient is already on Eliquis --Full CODE STATUS --Deaf and mute; stable --DC planning; patient and daughter refused any home health assistance at DC Except for right home by uber/ambulance We'll monitor the patient and adjust the management as needed Possible discharge in 1-2 days if stable I discussed patient's condition treatment and discharge planning extensively with her daughter Ms. Chery at [phone] Answered all her questions. History Interval history: Patient seen and evaluated medical records reviewed No new events reported by the nursing staff Patient is deaf and mute, most of the conversation is done by paper and pen Patient feels better, right hand swelling significantly improved Alert awake oriented 3 not in acute distress Hospitalist Physical - Constitutional Vitals: Temp Pulse Resp BP Pulse Ox 98.0 F 78 20 109/57 94 04/06/17 20:00 04/06/17 22:00 04/06/17 20:00 04/06/17 20:00 04/06/17 20:00 General appearance: Present: no acute distress, well-nourished - EENT Eyes: Present: PERRL, EOM intact - Neck Neck: Present: supple, normal ROM - Respiratory Respiratory effort: normal Respiratory: negative: rales, rhonchi, wheezing - Cardiovascular Rhythm: regular Heart Sounds: Present: S1 & S2 - Extremities Extremities: no ischemia, No edema, abnormal (right wrist swelling and tenderness) - Abdominal General gastrointestinal: soft, non-tender, non-distended, normal bowel sounds - Integumentary Integumentary: Present: clear, warm - Psychiatric Psychiatric: appropriate mood/affect, cooperative - Neurologic Neurologic: CNII-XII intact, moves all extremities Results - Labs CBC & Chem 7: 04/07/17 05:14 04/07/17 05:14 Labs: Laboratory Last Values WBC 6.5 K/mm3 (4.5-11.0) 04/07/17 05:14 RBC 3.79 M/mm3 (3.65-5.03) 04/07/17 05:14 Hgb 11.6 gm/dl (10.1-14.3) 04/07/17 05:14 Hct 34.3 % (30.3-42.9) 04/07/17 05:14 MCV 90 fl (79-97) 04/07/17 05:14 MCH 31 pg (28-32) 04/07/17 05:14 MCHC 34 % (30-34) 04/07/17 05:14 RDW 14.6 % (13.2-15.2) 04/07/17 05:14 Plt Count 158 K/mm3 (140-440) 04/07/17 05:14 Lymph % (Auto) 27.2 % (13.4-35.0) 04/07/17 05:14 [place] % (Auto) 8.4 % (0.0-7.3) H 04/07/17 05:14 Eos % (Auto) 0.2 % (0.0-4.3) 04/07/17 05:14 Baso % (Auto) 0.4 % (0.0-1.8) 04/07/17 05:14 Lymph # 1.8 K/mm3 (1.2-5.4) 04/07/17 05:14 [place] # 0.6 K/mm3 (0.0-0.8) 04/07/17 05:14 Eos # 0.0 K/mm3 (0.0-0.4) 04/07/17 05:14 Baso # 0.0 K/mm3 (0.0-0.1) 04/07/17 05:14 Seg Neutrophils % 63.8 % (40.0-70.0) 04/07/17 05:14 Seg Neutrophils # 4.2 K/mm3 (1.8-7.7) 04/07/17 05:14 PT 21.3 Sec. (12.2-14.9) H 04/06/17 12:12 INR 1.85 (0.87-1.13) H 04/06/17 12:12 APTT 33.1 Sec. (24.2-36.6) 04/06/17 12:12 Sodium 143 mmol/L (137-145) 04/07/17 05:14 Potassium 3.6 mmol/L (3.6-5.0) 04/07/17 05:14 Chloride 98.5 mmol/L (98-107) 04/07/17 05:14 Carbon Dioxide 34 mmol/L (22-30) H D 04/07/17 05:14 Anion Gap 14 mmol/L 04/07/17 05:14 BUN 13 mg/dL (7-17) 04/07/17 05:14 Creatinine 0.8 mg/dL (0.7-1.2) 04/07/17 05:14 Estimated GFR > 60 ml/min 04/07/17 05:14 BUN/Creatinine Ratio 16.25 % 04/07/17 05:14 Glucose 113 mg/dL (65-100) H 04/07/17 05:14 Calcium 7.6 mg/dL (8.4-10.2) L 04/07/17 05:14 Magnesium 0.90 mg/dL (1.7-2.3) L* 04/06/17 12:12 Total Bilirubin 0.70 mg/dL (0.1-1.2) 04/07/17 05:14 Direct Bilirubin 0.4 mg/dL (0-0.2) H 04/06/17 12:12 Indirect Bilirubin 0.8 mg/dL 04/06/17 12:12 AST 23 units/L (5-40) 04/07/17 05:14 ALT 14 units/L (7-56) 04/07/17 05:14 Alkaline Phosphatase 65 units/L (35-129) 04/07/17 05:14 Troponin T < 0.010 ng/mL (0.00-0.029) 04/06/17 12:12 Total Protein 6.7 g/dL (6.3-8.2) 04/07/17 05:14 Albumin 3.6 g/dL (3.9-5) L 04/07/17 05:14 Albumin/Globulin Ratio 1.2 % 04/07/17 05:14
[2017-04-07] MEDS ORDERED: NON-FORMULARY (Solifenacin Succinate [Vesicare] 5 MG) PO SCH (10:00)
[2017-04-07] MEDS ORDERED: NON-FORMULARY (Esomeprazole Magnesium [Nexium] 40 MG) PO SCH (10:00)
[2017-04-07] MEDS ORDERED: NON-FORMULARY (Atorvastatin 10 MG) PO SCH (10:00)
[2017-04-07] MEDS: PROTONIX PO SCH (10:13)
[2017-04-07] MEDS: ZYLOPRIM PO SCH ×2 (10:13→22:46)
[2017-04-07] MEDS: ELIQUIS PO SCH ×2 (10:13→22:41)
[2017-04-07] MEDS: FISH OIL PO SCH (10:13)
[2017-04-07] MEDS: COZAAR PO SCH (10:14)
[2017-04-07] MEDS: TENORMIN PO SCH (12:03)
[2017-04-07] MEDS: VANCOMYCIN 1,500 MG in NACL 0.9% 500 ML 500 ML IV SCH (16:57)
[2017-04-07] MEDS: AMBIEN PO SCH (22:46)
[2017-04-08] MEDS: UNASYN/NS 3 GM/100 ML 3 GM/100 ML BAG IV SCH ×3 (00:42→13:00)
[2017-04-08] MEDS: LASIX PO SCH (05:59)
[2017-04-08 06:10] LABS: Anion Gap 17 mmol/L; BUN/Creatinine Ratio 14.28; Blood Urea Nitrogen 10 mg/dL (7-17); Calcium 7.8 mg/dL (8.4-10.2); Carbon Dioxide 28 mmol/L (22-30); Chloride 102.8 mmol/L (98-107); Glucose 95 mg/dL (65-100); Sodium 145 mmol/L (137-145)
[2017-04-08] MEDS ORDERED: K-DUR PO ONE (07:41)
[2017-04-08] MEDS ORDERED: MAGNESIUM SULFATE 3 GM in NACL 0.9% 100 ML IV ONE (09:00)
--- NOTE | 2017-04-08 09:01 | Discharge Summary ---
Providers - Providers Date of Admission: 04/06/17 13:45 Date of discharge: 04/08/17 Attending physician: KIMBERLY SORIA Primary care physician: BRIDGE TENDER Hospitalization Condition: Stable Disposition: DC-01 TO HOME OR SELFCARE Core Measure Documentation - Palliative Care Palliative Care/ Comfort Measures: Not Applicable - Core Measures Any of the following diagnoses?: none Exam - Constitutional Vitals: Temp Pulse Resp BP Pulse Ox 97.8 F 89 18 140/89 97 04/08/17 07:47 04/08/17 07:47 04/08/17 07:47 04/08/17 07:47 04/08/17 07:47 General appearance: Present: no acute distress, well-nourished - EENT Eyes: Present: PERRL, EOM intact - Neck Neck: Present: supple, normal ROM - Respiratory Respiratory effort: normal Respiratory: negative: rales, rhonchi, wheezing - Cardiovascular Rhythm: regular Heart Sounds: Present: S1 & S2 - Extremities Extremities: no ischemia, No edema - Abdominal General gastrointestinal: Present: soft, non-tender, non-distended, normal bowel sounds - Integumentary Integumentary: Present: clear, warm - Musculoskeletal Musculoskeletal: strength equal bilaterally - Psychiatric Psychiatric: appropriate mood/affect, cooperative - Neurologic Neurologic: moves all extremities Plan Activity: no restrictions, fall precautions Diet: low salt Additional Instructions: check Potassium and mag levels in 3-4 days at PMD office Follow up with: PRIMARY CARE, [Primary Care Provider] - 3-5 Days Prescriptions: HYDROcodone/APAP 5-325 [[place] 5-325 mg TAB] 1 each PO TID PRN #15 tablet PRN Reason: Pain Magnesium Oxide [Mag-Ox] 400 mg PO QDAY #7 tablet Potassium Chloride 10 meq PO QDAY #7 capsule.er
[2017-04-08] MEDS: TENORMIN PO SCH (10:19)
[2017-04-08] MEDS: FISH OIL PO SCH (10:19)
[2017-04-08] MEDS: ELIQUIS PO SCH (10:20)
[2017-04-08] MEDS: ZYLOPRIM PO SCH (10:20)
[2017-04-08] MEDS: COZAAR PO SCH (10:20)
[2017-04-08] MEDS: PROTONIX PO SCH (10:20)
[2017-04-08 10:21] VITALS: BP 140/87
== END 2017-04-08 15:55 | disposition home health service (06) | DRG 603 ==
LOC: ED 09:03 → 3A 13:45
PROVIDERS: ADMIT Internal Medicine; ATTEND Internal Medicine
DX: L03.113 Cellulitis of right upper limb (principal); E83.51 Hypocalcemia; E83.42 Hypomagnesemia; I48.2 Chronic atrial fibrillation; I50.9 Heart failure, unspecified; M10.9 Gout, unspecified; I11.0 Hypertensive heart disease with heart failure; K21.9 Gastro-esophageal reflux disease without esophagitis; Z96.642 Presence of left artificial hip joint; M19.90 Unspecified osteoarthritis, unspecified site; E87.6 Hypokalemia; R32 Unspecified urinary incontinence; E78.5 Hyperlipidemia, unspecified; Z79.01 Long term (current) use of anticoagulants; Z90.710 Acquired absence of both cervix and uterus
CPT/HCPCS: 36415; 80048; 80053; 80074; 83735; 84484; 85025; 85610; 85730; 93005; 93010; 96365; 96375; 99285; A9270-GY; J0295; J0610; J2270; J3370; J3475; J7040; J7512; Q0162

== ENCOUNTER 2017-10-03 10:08 | Outpatient (CLI) | payer MEDICARE, OTHER ==
[2017-10-03 10:59] LABS: Blood Urea Nitrogen 16 mg/dL (7-17)
--- NOTE | 2017-10-03 18:05 | Cat Scan Report ---
FINAL REPORT EXAM: CT ANGIO NECK HISTORY: OCCLUSION AND STENOSIS OF FAHAD CAROTID ARTERIES TECHNIQUE: Spiral CTA of the neck after the uneventful administration of IV contrast. Multiplanar reformations. PRIORS: 03 August 2016. FINDINGS: Normal enhancement of the bilateral CCAs, ICAs and ECAs. Partially calcified, atherosclerotic change in the bilateral carotid bulbs and proximal ICAs, left greater than right, again noted. Moderate, focal stenosis in the left proximal ICA approximating 50-70% stenosis by NASCET criteria and occurring approximately 1 cm distal to bifurcation mildly increased. No abnormal aneurysmal dilatation, apparent dissection, other significant stenosis or occlusion. Vertebral arteries are patent, with mild left-sided dominance. Degenerative change in the cervical spine. IMPRESSION: 1. Atherosclerosis and moderate focal stenosis in left proximal ICA as reported, with mild interval progression.
== END 2017-10-03 10:09 | disposition home or self-care (01) ==
LOC: CT 10:08
PROVIDERS: ATTEND Surgery Vascular Surgery
DX: I65.22 Occlusion and stenosis of left carotid artery (principal); I10 Essential (primary) hypertension; H91.90 Unspecified hearing loss, unspecified ear; M47.892 Other spondylosis, cervical region; I48.2 Chronic atrial fibrillation; I48.91 Unspecified atrial fibrillation
CPT/HCPCS: 36415; 70498; 82565; 84520; Q9967

== ENCOUNTER 2018-03-19 08:24 | Outpatient (CLI) | payer MEDICARE ==
[2018-03-19] MEDS ORDERED: KINEVAC IV ONE ×2 (09:44→09:49)
--- NOTE | 2018-03-19 12:10 | Nuclear Medicine Report ---
HEPATOBILIARY SCAN: History: Abdominal pain. Following the injection of the radionuclide, serial scanning was obtained over the right upper quadrant. Initial imaging of the liver demonstrates a relatively normal activity pattern. Progressive concentration of the radionuclide in the bile ducts, with filling of both the gallbladder and small bowel, is identified within a normal time period. The gallbladder ejection fraction measures 83%. The patient reports a new symptom of nausea during the infusion of CCK. IMPRESSION: Normal biliary system. Symptomatology as described.
== END 2018-03-19 08:25 | disposition home or self-care (01) ==
LOC: NM 08:24
PROVIDERS: ATTEND Internal Medicine Gastroenterology
DX: R10.9 Unspecified abdominal pain (principal); I48.2 Chronic atrial fibrillation; I48.91 Unspecified atrial fibrillation; I10 Essential (primary) hypertension; E78.5 Hyperlipidemia, unspecified; K21.9 Gastro-esophageal reflux disease without esophagitis; I11.0 Hypertensive heart disease with heart failure; M19.90 Unspecified osteoarthritis, unspecified site; I50.9 Heart failure, unspecified; Z90.710 Acquired absence of both cervix and uterus
CPT/HCPCS: 78227; A9537; J2805

== ENCOUNTER 2020-09-15 14:46 | Emergency (ER) | payer MEDICARE ==
[2020-09-15] MEDS ORDERED: LIDOCAINE (2%) 20 MG/1 ML VIAL 20 ML MDV INFILTRATI STA (18:32)
--- NOTE | 2020-09-15 20:29 | XRay Report ---
XR hip 2-3V LT INDICATION / CLINICAL INFORMATION: Pain COMPARISON: None FINDINGS: Left total hip arthroplasty projects in expected alignment. No hardware complication. There is modera te osteoarthritis of the right hip and degenerative changes of the SI joints. Lower lumbar spondylosi s and transitional features at the lumbosacral junction noted. Soft tissues are unremarkable. IMPRESSION: 1.No acute process. Signer Name: Sven Mcduffie MD Signed: 09/15/2020 8:24 PM Workstation Name: [id number]
--- NOTE | 2020-09-15 20:32 | XRay Report ---
XR ribs UNI w PA chest 3+V LT INDICATION / CLINICAL INFORMATION: Pain COMPARISON: None available. FINDINGS: SUPPORT DEVICES: None. HEART /PULMONARY VASCULATURE: Cardiac silhouette is enlarged without significant pulmonary vasculatur e congestion. LUNGS / PLEURA: There is a small left pleural effusion and adjacent airspace opacity. No pneumothorax . BONES: No acute or healing rib fracture identified. IMPRESSION: 1. Small left pleural effusion with adjacent atelectasis. 2. No acute or healing displaced left-sided rib fracture. Signer Name: Sven Mcduffie MD Signed: 09/15/2020 8:27 PM Workstation Name: [id number]
--- NOTE | 2020-09-15 20:32 | XRay Report ---
. LEFT ELBOW 4 VIEW(S) INDICATION / CLINICAL INFORMATION: MAIN COMPARISON: None available. FINDINGS: BONES / JOINT(S): No acute fracture or subluxation. No significant arthritis. No significant joint ef fusion. SOFT TISSUES: No significant abnormality. ADDITIONAL FINDINGS: None. IMPRESSION: No acute osseous findings of the left elbow. Signer Name: Sven Mcduffie MD Signed: 09/15/2020 8:27 PM Workstation Name: [id number]
--- NOTE | 2020-09-15 21:09 | XRay Report ---
LEFT HUMERUS 2 VIEW(S) INDICATION / CLINICAL INFORMATION: fall with contusion and arm pain COMPARISON: Elbow radiograph 09/15/2020 FINDINGS: BONES / JOINT(S): No acute fracture or subluxation. Overall moderate degenerative change. Possible pu nctate intra-articular bodies in the elbow joint. SOFT TISSUES: No significant abnormality. ADDITIONAL FINDINGS: None. Signer Name: Bo Peoples MD Signed: 09/15/2020 9:05 PM Workstation Name: [id number]
--- NOTE | 2020-09-15 22:02 | Emergency Department Report ---
ED Fall HPI - General Chief Complaint: Wound/Laceration Stated Complaint: LT ELBOW/RT MIDDLE/RING FINGER INJURY Time Seen by Provider: 09/15/20 16:29 Source: patient Mode of arrival: Ambulatory - History of Present Illness Initial Comments: 85-year-old female with past medical history involving the left hip department status post mechanical fall onto the left side resulting in pain to the elbow shoulder hip and rib region. Ports no hemoptysis no hematemesis hematochezia no nausea no vomiting no shortness of breath MD Complaint: fall -: Sudden When Fall Occurred: 1-[address] Fall Occurred: home Loss of Consciousness: none Prolonged Down Time?: no Symptoms Prior to Fall: none Location: other ( left chest hip) Location - Extremities: Left: Shoulder, Elbow, Thigh (Hip region), Right: Hand (Index finger) Severity: mild, moderate Quality: dull, aching Associated Symptoms: denies: neck pain, numbness, chest paint, shortness of breath, abdominal pain, lightheaded, vertigo, confusion - Related Data Home Medications Medication Instructions Recorded Confirmed Last Taken Apixaban [Eliquis] 5 mg PO BID 07/02/16 04/06/17 04/06/17 07:00 Esomeprazole Magnesium [NexIUM] 40 mg PO QDAY 07/02/16 04/06/17 04/06/17 07:00 Furosemide [Lasix TAB] 20 mg PO QDAY 07/02/16 04/06/17 04/06/17 07:00 Losartan [Cozaar] 100 mg PO QDAY 07/02/16 04/06/17 04/06/17 07:00 100 MG allopurinoL [Zyloprim] 300 mg PO QDAY 07/02/16 04/06/17 04/06/17 07:00 atenoloL [Tenormin] 50 mg PO DAILY 07/02/16 04/06/17 04/06/17 07:00 cycloSPORINE [Restasis 0.05%] 1 drop OP BID 07/02/16 04/06/17 04/06/17 07:00 0.05MG AtorvaSTATin 10 mg PO DAILY 04/06/17 04/06/17 04/06/17 07:00 10 MG [place]-3 Fatty Acids/Fish Oil [Fish 1 tab PO DAILY 04/06/17 04/06/17 04/06/17 07:00 Oil] 1 TAB Solifenacin Succinate [Vesicare] 5 mg PO QDAY 04/06/17 04/06/17 04/06/17 07:00 1 TABLET Ubidecarenone [Coq-10] 100 mg PO DAILY 04/06/17 04/06/17 04/06/17 13:55 1 TABLET Zolpidem [Ambien] 5 mg PO QHS 04/06/17 04/06/17 Unknown traMADoL [Ultram 50 MG tab] 50 mg PO Q4HR PRN 04/06/17 04/06/17 Unknown Previous Rx's Medication Instructions Recorded Last Taken Type HYDROcodone/APAP 5-325 [[place] 1 each PO TID PRN #15 tablet 04/08/17 Unknown Rx 5-325 mg TAB] Magnesium Oxide [Mag-Ox] 400 mg PO QDAY #7 tablet 04/08/17 Unknown Rx Potassium Chloride 10 meq PO QDAY #7 capsule.er 04/08/17 Unknown Rx Allergies Allergy/AdvReac Type Severity Reaction Status Date / Time No Known Allergies Allergy Verified 04/06/17 10:01 ED Review of Systems ROS: Stated complaint: LT ELBOW/RT MIDDLE/RING FINGER INJURY Other details as noted in HPI Comment: All other systems reviewed and negative ED Past Medical Hx - Past Medical History Hx Hypertension: Yes Hx Congestive Heart Failure: Yes Hx Diabetes: No Hx GERD: Yes Hx Arthritis: Yes Additional medical history: Gout. HIGH CHOLESTEROL - Surgical History Additional Surgical History: Left Hip replacement 2008. HYSTERECTOMY 1974. BACK SURGERY X 2 - Social History Smoking Status: Never Smoker - Medications Home Medications: Home Medications Medication Instructions Recorded Confirmed Last Taken Type Apixaban [Eliquis] 5 mg PO BID 07/02/16 04/06/17 04/06/17 07:00 History Esomeprazole Magnesium [NexIUM] 40 mg PO QDAY 07/02/16 04/06/17 04/06/17 07:00 History Furosemide [Lasix TAB] 20 mg PO QDAY 07/02/16 04/06/17 04/06/17 07:00 History Losartan [Cozaar] 100 mg PO QDAY 07/02/16 04/06/17 04/06/17 07:00 History 100 MG allopurinoL [Zyloprim] 300 mg PO QDAY 07/02/16 04/06/17 04/06/17 07:00 History atenoloL [Tenormin] 50 mg PO DAILY 07/02/16 04/06/17 04/06/17 07:00 History cycloSPORINE [Restasis 0.05%] 1 drop OP BID 07/02/16 04/06/17 04/06/17 07:00 History 0.05MG AtorvaSTATin 10 mg PO DAILY 04/06/17 04/06/17 04/06/17 07:00 History 10 MG [place]-3 Fatty Acids/Fish Oil [Fish 1 tab PO DAILY 04/06/17 04/06/17 04/06/17 07:00 History Oil] 1 TAB Solifenacin Succinate [Vesicare] 5 mg PO QDAY 04/06/17 04/06/17 04/06/17 07:00 History 1 TABLET Ubidecarenone [Coq-10] 100 mg PO DAILY 04/06/17 04/06/17 04/06/17 13:55 History 1 TABLET Zolpidem [Ambien] 5 mg PO QHS 04/06/17 04/06/17 Unknown History traMADoL [Ultram 50 MG tab] 50 mg PO Q4HR PRN 04/06/17 04/06/17 Unknown History HYDROcodone/APAP 5-325 [[place] 1 each PO TID PRN #15 tablet 04/08/17 Unknown Rx 5-325 mg TAB] Magnesium Oxide [Mag-Ox] 400 mg PO QDAY #7 tablet 04/08/17 Unknown Rx Potassium Chloride 10 meq PO QDAY #7 capsule.er 04/08/17 Unknown Rx ED Physical Exam - General Limitations: Other General appearance: alert, in no apparent distress - Head Head exam: Present: atraumatic, normocephalic - Eye Eye exam: Present: normal appearance, PERRL, EOMI Pupils: Present: normal accommodation - ENT ENT exam: Present: normal exam, normal orophraynx, mucous membranes moist, TM's normal bilaterally - Neck Neck exam: Present: normal inspection, full ROM - Respiratory Respiratory exam: Present: normal lung sounds bilaterally, chest wall tenderness (And bruising to the left rib region no step-off no lifts heaves or thrills no subcutaneous emphysema). Absent: respiratory distress, wheezes, rales, accessory muscle use - Cardiovascular Cardiovascular Exam: Present: regular rate, normal rhythm. Absent: systolic murmur, diastolic murmur, rubs, gallop - GI/Abdominal GI/Abdominal exam: Present: soft, normal bowel sounds - Extremities Exam Extremities exam: Present: normal inspection - Expanded Upper Extremity Exam Left Shoulder Exam: Present: tenderness, ecchymosis Elbow exam: Present: tenderness, swelling, ecchymosis Hand L/R Back: 1 - Partial thickness skin avulsion with moderate bleeding - Expanded Lower Extremity Exam Left Hip exam: Present: tenderness, swelling, ecchymosis. Absent: crepidus, dislocation, external rotation, internal rotation, shortening - Back Exam Back exam: Present: normal inspection - Neurological Exam Neurological exam: Present: alert, oriented X3 - Psychiatric Psychiatric exam: Present: normal affect, normal mood - Skin Skin exam: Present: warm, dry, intact, normal color. Absent: rash - Procedure Description Procedures done: Partial finger avulsion about 1 cm wound was irrigated and cleaned a Surgicel dressing was placed which hemostasis was achieved ED Medical Decision Making - Radiology Data Radiology results: report reviewed Referring Physician:ARIS OLIVERPatient Name:MARVIN NEGRETEPatient ID:[id number] of :[id number]:FemaleAccession:[id number] Date:7876-48-54Mybbwe Statu s:Finalized Findings [address] [address] XRay Report Signed Patient: MARVIN NEGRETE MR#: [id number] : 1935 Acct:[id number] Age/Sex: 85 / F ADM Date: 09/15/20 Loc: ED Attending Dr: Ordering Physician: MEDINA CASAS Date of Service: 09/15/20 Procedure(s): XR hip 2-3V LT Accession Number(s): [id number] cc: MEDINA CASAS Fluoro Time In Minutes: XR hip 2-3V LT INDICATION / CLINICAL INFORMATION: Pain COMPARISON: None FINDINGS: Left total hip arthroplasty projects in expected alignment. No hardware complication. 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 Lower lumbar spondylosis and transitional features at the lumbosacral junction noted. Soft tissues are unremarkable. IMPRESSION: 1.No acute process. Signer Name: Rita Mcduffie MD Signed: 09/15/2020 8:24 PM Workstation Name: [id number] Transcribed By: ALLEGRA Dictated By: RITA MCDUFFIE MD Electronically Authenticated By: RITA MCDUFFIE MD Signed Date/Time: 09/15/202023 DD/ 22 TD/TT: Print Report Referring Physician:ARIS OLIVERPatient Name:MARVIN NEGRETEPatient ID:[id number] of :[id number]:FemaleAccession:[id number] Date:9730-11-55Fgobrg Status:[place] [address] XRay Report Signed Patient: MARVIN NEGRETE MR#: [id number] : 1935 Acct:[id number] Age/Sex: 85 / F ADM Date: 09/15/20 Loc: ED Attending Dr: Ordering Physician: MEDINA CASAS Date of Service: 09/15/20 Procedure(s): XR elbow 2V LT Accession Number(s): [id number] cc: MEDINA CASAS Fluoro Time In Minutes: . LEFT ELBOW 4 VIEW(S) INDICATION / CLINICAL INFORMATION: MAIN COMPARISON: None available. FINDINGS: BONES / JOINT(S): No acute fracture or subluxation. No significant arthritis. No significant joint effusion. SOFT TISSUES: No significant abnormality. ADDITIONAL FINDINGS: None. IMPRESSION: No acute osseous findings of the left elbow. Signer Name: Rita Mcduffie MD Signed: 09/15/2020 8:27 PM Workstation Name: [id number] Transcribed By: ALLEGRA Dictated By: RITA MCDUFFIE MD Electronically Authenticated By: RITA MCDUFFIE MD Signed Date/Time: 09/15/202026 DD/ 26 TD/TT: Print Report Referring Physician:ARIS OLIVERPatient Name:MARVIN CHRISTIANPatient ID:[id number] of :[id number]:FemaleAccession:[id number] Date:8974-11-08Hoxybs Status:Finalized Findings [address] [address] XRay Report Signed Patient: MAVRIN NEGRETE MR#: [id number] : 1935 Acct:[id number] Age/Sex: 85 / F ADM Date: 09/15/20 Loc: ED Attending Dr: Ordering Physician: MEDINA CASAS Date of Service: 09/15/20 Procedure(s): XR humerus 2+V LT Accession Number(s): [id number] cc: MEDINA CASAS Fluoro Time In Minutes: LEFT HUMERUS 2 VIEW(S) INDICATION / CLINICAL INFORMATION: fall with contusion and arm pain COMPARISON: Elbow radiograph 09/15/2020 FINDINGS: BONES / JOINT(S): No acute fracture or subluxation. Overall moderate degenerative change. Possible punctate intra-articular bodies in the elbow joint. SOFT TISSUES: No significant abnormality. ADDITIONAL FINDINGS: None. Signer Name: Nissa Peoples MD Signed: 09/15/2020 9:05 PM Workstation Name: [id number] Transcribed By: RH Dictated By: NISSA PEOPLES III Electronically Authenticated By: NISSA PEOPLES III Signed Date/Time: 09/15/202104 DD/ 03 TD/TT: Referring Physician:ARIS OLIVERPatient Name:MARVIN NEGRETEPatient ID:[id number] of :[id number]:FemaleAccession:[id number] Date:6229-91-97Ovedln Status:Finalized Findings [address] [address] XRay Report Signed Patient: MARVIN NEGRETE MR#: [id number] : 1935 Acct:[id number] Age/Sex: 85 / F ADM Date: 09/15/20 Loc: ED Attending Dr: Ordering Physician: MEDINA CASAS Date of Service: 09/15/20 Procedure(s): XR ribs UNI w PA chest 3+V LT Accession Number(s): [id number] cc: MEDINA CASAS Fluoro Time In Minutes: XR ribs UNI w PA chest 3+V LT INDICATION / CLINICAL INFORMATION: Pain COMPARISON: None available. FINDINGS: SUPPORT DEVICES: None. HEART /PULMONARY VASCULATURE: Cardiac silhouette is enlarged without significant pulmonary vasculature congestion. LUNGS / PLEURA: There is a small left pleural effusion and adjacent airspace opacity. No pneumothorax. BONES: No acute or healing rib fracture identified. IMPRESSION: 1. Small left pleural effusion with adjacent atelectasis. 2. No acute or healing displaced left-sided rib fracture. Signer Name: Rita Mcduffie MD Signed: 09/15/2020 8:27 PM Workstation Name: [id number] Transcribed By: ALLEGRA Dictated By: RITA MCDUFFIE MD Electronically Authenticated By: RITA MCDUFFIE MD Signed Date/Time: 09/15/202026 DD/ 24 TD/TT: [place] [address] Cat Scan Report Signed Patient: MARVIN NEGRETE MR#: [id number] : 1935 Acct:[id number] Age/Sex: 85 / F ADM Date: 09/15/20 Loc: ED Attending Dr: Ordering Physician: MEDINA CASAS Date of Service: 09/15/20 Procedure(s): CT chest wo con Accession Number(s): [id number] cc: MEDINA CASAS CT chest without contrast INDICATION : Patient has a rib fracture with effusion / now with chest pain. TECHNIQUE: Axial imaging performed through the chest without the use of intravenous contrast. All CT scans at this location are performed using CT dose reduction for ALARA by means of automated exposure control. COMPARISON: None FINDINGS: There is moderate atherosclerotic disease in the coronary arteries and aortic valve. Heart size is mildly enlarged. No pathologic mediastinal adenopathy. Lung are clear. Limited imaging of the upper abdomen shows nothing acute. There are degenerative changes throughout the spine and to a lesser extent in the shoulders with nothing acute. IMPRESSION: No acute abnormality. No displaced rib fracture or effusion. Signer Name: Karl Roblero MD Signed: 09/15/2020 11:25 PM Workstation Name: [id number] Transcribed By: RODDY Dictated By: Karl Roblero MD Electronically Authenticated By: Karl Roblero MD Signed Date/Time: 09/15/202324 DD/ 21 TD/TT: - Medical Decision Making 85-year-old female brought in presents emerge department status post trip and f all and was found to have multiple bruises but no fractures or any significant injury to warrant any urgent or emergent medical problems she is hemodynamically stable reports no shortness of breath and CT scan shows no effusion or rib fractures. CT scan was obtained in response to the findings on the chest x-ray with suspected fracture and effusion. She is ambulatory maintaining her normal saturation as well. Finger tip avulsion was treated and hemostasis achieved with Surgicel. Critical care attestation.: If time is entered above; I have spent that time in minutes in the direct care of this critically ill patient, excluding procedure time. ED Disposition Clinical Impression: Fall, Rib contusion, Arm contusion, Fingernail avulsion, partial Disposition: DC-01 TO HOME OR SELFCARE Is pt being admited?: No Does the pt Need Aspirin: No Condition: Stable Instructions: Wound Care, Adult, Contusion, [id number], Elbow Contusion, How to Use Cold Therapy, Blunt Chest Trauma Additional Instructions: Please use [id number] Tylenol and Motrin to help your pain and cold therapy as well. Your CT scan was normal and x-rays revealed no fractures. Be sure to follow-up with your provider within 48 hours to be reevaluated. Call them in the morning as this is the holiday time and it may want to see you sooner or arrange appointment over the weekend or first thing Monday he can return to the emergency department should you feel your condition is worsening Referrals: PRIMARY MD SHAMEKA [Primary Care Provider] - 3-5 Days
--- NOTE | 2020-09-15 23:30 | Cat Scan Report ---
CT chest without contrast INDICATION : Patient has a rib fracture with effusion / now with chest pain. TECHNIQUE: Axial imaging performed through the chest without the use of intravenous contrast. All C T scans at this location are performed using CT dose reduction for ALARA by means of automated exposu re control. COMPARISON: None FINDINGS: There is moderate atherosclerotic disease in the coronary arteries and aortic valve. Heart size is mildly enlarged. No pathologic mediastinal adenopathy. Lung are clear. Limited imaging of the upper abdomen shows nothing acute. There are degenerative changes throughout t he spine and to a lesser extent in the shoulders with nothing acute. IMPRESSION: No acute abnormality. No displaced rib fracture or effusion. Signer Name: Karl Roblero MD Signed: 09/15/2020 11:25 PM Workstation Name: [id number]
--- NOTE | 2020-09-16 00:01 | Emergency Department Report ---
ED Fall HPI - General Chief Complaint: Wound/Laceration Stated Complaint: LT ELBOW/RT MIDDLE/RING FINGER INJURY Time Seen by Provider: 09/15/20 16:29 Source: patient Mode of arrival: Ambulatory - Related Data Home Medications Medication Instructions Recorded Confirmed Last Taken Apixaban [Eliquis] 5 mg PO BID 07/02/16 04/06/17 04/06/17 07:00 Esomeprazole Magnesium [NexIUM] 40 mg PO QDAY 07/02/16 04/06/17 04/06/17 07:00 Furosemide [Lasix TAB] 20 mg PO QDAY 07/02/16 04/06/17 04/06/17 07:00 Losartan [Cozaar] 100 mg PO QDAY 07/02/16 04/06/17 04/06/17 07:00 100 MG allopurinoL [Zyloprim] 300 mg PO QDAY 07/02/16 04/06/17 04/06/17 07:00 atenoloL [Tenormin] 50 mg PO DAILY 07/02/16 04/06/17 04/06/17 07:00 cycloSPORINE [Restasis 0.05%] 1 drop OP BID 07/02/16 04/06/17 04/06/17 07:00 0.05MG AtorvaSTATin 10 mg PO DAILY 04/06/17 04/06/17 04/06/17 07:00 10 MG [place]-3 Fatty Acids/Fish Oil [Fish 1 tab PO DAILY 04/06/17 04/06/17 04/06/17 07:00 Oil] 1 TAB Solifenacin Succinate [Vesicare] 5 mg PO QDAY 04/06/17 04/06/17 04/06/17 07:00 1 TABLET Ubidecarenone [Coq-10] 100 mg PO DAILY 04/06/17 04/06/17 04/06/17 13:55 1 TABLET Zolpidem [Ambien] 5 mg PO QHS 04/06/17 04/06/17 Unknown traMADoL [Ultram 50 MG tab] 50 mg PO Q4HR PRN 04/06/17 04/06/17 Unknown Previous Rx's Medication Instructions Recorded Last Taken Type HYDROcodone/APAP 5-325 [[place] 1 each PO TID PRN #15 tablet 04/08/17 Unknown Rx 5-325 mg TAB] Magnesium Oxide [Mag-Ox] 400 mg PO QDAY #7 tablet 04/08/17 Unknown Rx Potassium Chloride 10 meq PO QDAY #7 capsule.er 04/08/17 Unknown Rx Allergies Allergy/AdvReac Type Severity Reaction Status Date / Time No Known Allergies Allergy Verified 04/06/17 10:01 ED Review of Systems ROS: Stated complaint: LT ELBOW/RT MIDDLE/RING FINGER INJURY Other details as noted in HPI Comment: All other systems reviewed and negative ED Past Medical Hx - Past Medical History Hx Hypertension: Yes Hx Congestive Heart Failure: Yes Hx Diabetes: No Hx GERD: Yes Hx Arthritis: Yes Additional medical history: Gout. HIGH CHOLESTEROL - Surgical History Additional Surgical History: Left Hip replacement 2008. HYSTERECTOMY 1973. BACK SURGERY X 2 - Social History Smoking Status: Never Smoker - Medications Home Medications: Home Medications Medication Instructions Recorded Confirmed Last Taken Type Apixaban [Eliquis] 5 mg PO BID 07/02/16 04/06/17 04/06/17 07:00 History Esomeprazole Magnesium [NexIUM] 40 mg PO QDAY 07/02/16 04/06/17 04/06/17 07:00 History Furosemide [Lasix TAB] 20 mg PO QDAY 07/02/16 04/06/17 04/06/17 07:00 History Losartan [Cozaar] 100 mg PO QDAY 07/02/16 04/06/17 04/06/17 07:00 History 100 MG allopurinoL [Zyloprim] 300 mg PO QDAY 07/02/16 04/06/17 04/06/17 07:00 History atenoloL [Tenormin] 50 mg PO DAILY 07/02/16 04/06/17 04/06/17 07:00 History cycloSPORINE [Restasis 0.05%] 1 drop OP BID 07/02/16 04/06/17 04/06/17 07:00 History 0.05MG AtorvaSTATin 10 mg PO DAILY 04/06/17 04/06/17 04/06/17 07:00 History 10 MG [place]-3 Fatty Acids/Fish Oil [Fish 1 tab PO DAILY 04/06/17 04/06/17 04/06/17 07:00 History Oil] 1 TAB Solifenacin Succinate [Vesicare] 5 mg PO QDAY 04/06/17 04/06/17 04/06/17 07:00 History 1 TABLET Ubidecarenone [Coq-10] 100 mg PO DAILY 04/06/17 04/06/17 04/06/17 13:55 History 1 TABLET Zolpidem [Ambien] 5 mg PO QHS 04/06/17 04/06/17 Unknown History traMADoL [Ultram 50 MG tab] 50 mg PO Q4HR PRN 04/06/17 04/06/17 Unknown History HYDROcodone/APAP 5-325 [[place] 1 each PO TID PRN #15 tablet 04/08/17 Unknown Rx 5-325 mg TAB] Magnesium Oxide [Mag-Ox] 400 mg PO QDAY #7 tablet 04/08/17 Unknown Rx Potassium Chloride 10 meq PO QDAY #7 capsule.er 04/08/17 Unknown Rx ED Physical Exam - General Limitations: Other General appearance: alert, in no apparent distress - Head Head exam: Present: atraumatic, normocephalic - Eye Eye exam: Present: normal appearance, PERRL, EOMI Pupils: Present: normal accommodation - ENT ENT exam: Present: normal exam, normal orophraynx, mucous membranes moist - Neck Neck exam: Present: normal inspection, full ROM - Respiratory Respiratory exam: Present: normal lung sounds bilaterally, chest wall tenderness (Bruising to the left rib flank region with mild swelling no crepitus no). Absent: respiratory distress, wheezes, rales - Cardiovascular Cardiovascular Exam: Present: regular rate, normal rhythm. Absent: systolic murmur, diastolic murmur, rubs, gallop - GI/Abdominal GI/Abdominal exam: Present: soft, normal bowel sounds - Extremities Exam Extremities exam: Present: normal inspection - Back Exam Back exam: Present: normal inspection - Neurological Exam Neurological exam: Present: alert, oriented X3 - Psychiatric Psychiatric exam: Present: normal affect, normal mood - Skin Skin exam: Present: warm, dry, intact, normal color. Absent: rash Critical care attestation.: If time is entered above; I have spent that time in minutes in the direct care of this critically ill patient, excluding procedure time. ED Disposition Disposition: - TO HOME OR SELFCARE Condition: Stable Referrals: PRIMARY CARE, [Primary Care Provider] - 3-5 Days
[2020-09-16 01:31] VITALS: BP 145/76
== END 2020-09-16 01:15 | disposition home or self-care (01) ==
LOC: ED 14:46
DX: S20.219A Contusion of unspecified front wall of thorax, initial encounter (principal); S40.022A Contusion of left upper arm, initial encounter; S61.300A Unspecified open wound of right index finger with damage to nail, initial encounter; W18.30XA Fall on same level, unspecified, initial encounter; Y93.89 Activity, other specified; Y92.89 Other specified places as the place of occurrence of the external cause; Y99.8 Other external cause status
CPT/HCPCS: 71250